=== PATIENT | female | born 1995 | race African-American/Black ===

== ENCOUNTER 2021-10-15 13:02 | Emergency (ER) | payer OTHER ==
[~2021-10-15] VITALS: Ht 154.9 cm; Wt 50.8 kg
[2021-10-15] MEDS ORDERED: 0.9%NACL 1000ML 1,000 ML IV SCH (13:30)
[2021-10-15] MEDS ORDERED: LEVOFLOXACIN 500 MG TABLET PO SCH (13:30)
[2021-10-15] MEDS ORDERED: PROMETHAZINE HCL 25 MG/ML 1ML AMPULE IM SCH (13:30)
[2021-10-15] MEDS ORDERED: METRONIDAZOLE 500 MG TABLET PO SCH (13:30)
[2021-10-15 13:36] LABS: APPEARANCE,URINE Cloudy (CLEAR); BILIRUBIN,URINE Negative (NEGATIVE); COLOR,URINE Yellow (YELLOW); GLUCOSE, URINE (UA) Negative (NEGATIVE); KETONES,URINE 40 mg/dL (NEGATIVE); LEUKOCYTE ESTERASE ,URINE Trace (NEGATIVE); NITRATE,URINE Negative (NEGATIVE); OCCULT BLOOD,URINE Negative (NEGATIVE); PROTEIN,URINE Negative (NEGATIVE)
[2021-10-15 13:42] LABS: BASOPHILS % (AUTO) 0.3 % (0.0-5.0); EOSINOPHILS % (AUTO) 0.3 % (0.0-8.0); HEMATOCRIT 43.5 % (36-48); LYMPHOCYTES % (AUTO) 21.1 % (21.0-51.0); MEAN CORPUSCULAR HEMOGLOBIN 30.1 pg (27.0-33.0); MEAN CORPUSCULAR HGB CONC 33.1 g/dL (32.0-36.0); MEAN CORPUSCULAR VOLUME 90.8 fL (79-99); MONOCYTES % (AUTO) 7.8 % (3.0-13.0); NEUTROPHILS % (AUTO) 70.3 % (40.0-77.0); PLATELET COUNT (AUTO) 302 K/uL (130-400); RED BLOOD CELL COUNT(AUTO) 4.79 MIL/uL (4.00-5.50); RED CELL DISTRIBUTION WIDTH 12.9 % (11.0-15.5)
[2021-10-15 13:43] LABS: BACTERIA,URINE Few /HPF (None Seen); RBC,URINE None Seen /HPF (0-1); WBC,URINE 0-1 /HPF (0-1)
[2021-10-15 13:48] LABS: HCG,QUAL RESULT NEGATIVE (NEGATIVE)
[2021-10-15 14:04] LABS: ALBUMIN 4.2 g/dL (3.5-5.0); BILIRUBIN,TOTAL 0.3 mg/dL (0.2-1.0); CREATININE 0.9 mg/dL (0.5-1.5); POTASSIUM 3.8 mmol/L (3.5-5.1); TOTAL PROTEIN, SERUM 7.9 g/dL (6.0-8.3)
[2021-10-15] MEDS ORDERED: ONDA4TAB10 PO (15:07)
[2021-10-15] MEDS ORDERED: LEVO500T90 PO (15:07)
[2021-10-15] MEDS ORDERED: METR375C2 PO (15:07)
[2021-10-15 15:18] VITALS: BP 123/69
== END 2021-10-15 15:30 | disposition home or self-care (01) ==
LOC: EDH 13:02
DX: K52.9 Noninfective gastroenteritis and colitis, unspecified (principal); E86.0 Dehydration; G43.909 Migraine, unspecified, not intractable, without status migrainosus
CPT/HCPCS: 36415; 80053; 81001; 81025; 83605; 85025; 87040 ×2; 96360; 96372; 99283; J2550; J7030